=== PATIENT | male | born 2005 | race Caucasian/White ===

== ENCOUNTER 2025-08-29 20:37 | Emergency (ER) | payer OTHER ==
[~2025-08-29] VITALS: Ht 154.9 cm; Wt 46.3 kg
[2025-08-29 21:00] VITALS: TEMP 97.7
[2025-08-29 21:23] LABS: PLATELET COUNT (AUTO) 186 K/uL (150-450); RED BLOOD CELL COUNT(AUTO) 5.38 MIL/uL (4.5-6.0); RED CELL DISTRIBUTION WIDTH 13.0 % (11.5-15.0); WHITE BLOOD COUNT (AUTO) 9.4 K/uL (4.3-11.0)
[2025-08-29 21:33] LABS: CALCIUM, SERUM 8.8 mg/dL (8.5-10.1); CREATININE 1.1 mg/dL (0.6-1.3); SODIUM SERUM 142.0 mmol/L (136-145); UREA NITROGEN, BLOOD 22.0 mg/dL (7-18)
[2025-08-29 21:43] LABS: NT-PRO BNP 15 pg/mL (0-125)
[2025-08-29 23:45] VITALS: BP 111/77; O2SAT 99
== END 2025-08-29 23:46 | disposition home or self-care (01) ==
LOC: ER 20:39
DX: K59.00 Constipation, unspecified (principal); R07.89 Other chest pain; F84.0 Autistic disorder; R06.02 Shortness of breath
CPT/HCPCS: 36415; 71045-TC; 74018; 80048-TC; 83880; 84484-TC; 85025-TC